=== PATIENT | female | born 1930 | race Caucasian/White ===

== ENCOUNTER 2016-07-27 11:59 | Emergency (ER) | payer OTHER ==
[~2016-07-27] VITALS: Ht 149.9 cm; Wt 75.0 kg
[~2016-07-27 11:59] MED LIST: AMLODIPINE BESYL5 MG PO; AMOX TR-K CLV1 EAC3 PO; BACTRIM,SEPT1 TABLET PO; CALCARB 600600 MG PO; CALCIUM 500 +1 EAC2 PO; CALCIUM CITRAT1 EA14 PO; CILOSTAZOL100 MG PO; COUMADIN1 MG PO; COUMADIN2 MG PO; CYANOCOBALAM1000 MCG PO; Coumadin Protocol PO; DIFLUCAN150 MG PO; DULCOLAX10 MG PR; Dextrose 10% in Wate IV; Dextrose 50% in Wate IV; FLEET ENEMA-AD118 ML PR; FLEXERIL5 MG PO; FOSAMAX70 MG PO; FUROSEMIDE20 MG PO; Flexeril PO; GABAPENTIN300 MG PO; GLUCAGEN1 MG IM/SC; GLUCOPHAGE500 MG PO; Glucophage PO; Heparin Lock 100 uni IV; KEFLEX500 MG PO; LASIX20 MG PO; LASIX40 MG PO; LIDODERM 5% P1 PATCH TD; LIDODERM 5% P1 PATCH TP; LISINOPRIL20 MG PO; LISINOPRIL5 MG PO; LOPID600 MG PO; LORTAB 7.5/51 TABLET PO; LOTENSIN40 MG PO; LOTREL 5/401 CAPSULE PO; Lasix PO; Lopid PO; Lopressor PO; MEPHYTON5 MG PO; METFORMIN HCL500 M1 PO; METFORMIN HCL500 MG PO; METOPROLOL SUCC50 MG PO; NEURONTIN300 MG PO; NOVOLOG PE100 UNITS/ SC; Neurontin PO; Neutra-Phos,Phos-Nak PO; OXYCODONE-ACET1 EACH PO; Oscal 500 w/Vitamin PO; PHILLIPS'400 MG/5 M PO; PLETAL100 MG PO; PRADAXA150 MG PO; PROMETHAZINE HC25 M1 PO; Pletal PO; SALINE FLUSH 5 M5 ML IV; SANTYL30 GM TP; Santyl TP; TOPROL XL6.25 MG PO; TRICOR145 MG PO; TUMS500 MG PO; TYLENOL REGULA325 MG PO; Toprol XL PO; ULTRAM50 MG PO; Ultram PO; Vicodin,Norco 5/325 PO; Vitamin B-12 SC; Xylocaine 5% TP; Zestril,Prinivil PO
[2016-07-27 13:24] LABS: HEMATOCRIT 42.7 % (36.0-46.0); MCH 25.7 PG (29.0-34.0); MCHC 30.7 G/DL (30.0-36.0); MCV 83.9 FL (83-99); MEAN PLAT.VOLUME 9.9 uM^3 (9.5-12.4); PLATELET COUNT 310 K/uL (156-360); RBC DIS.WIDTH-CV 19.4 % (11.8-14.6); RBC DIS.WIDTH-SD 58.4 % (39-53); RED BLOOD COUNT 5.09 M/uL (3.80-5.20); WHITE BLOOD COUNT 6.8 K/uL (4.1-10.2)
[2016-07-27] MEDS ORDERED: KEFLEX500 MG PO (14:11)
[2016-07-27 14:46] VITALS: BP 180/84
== END 2016-07-27 14:48 | disposition home or self-care (01) ==
LOC: EME 11:59
PROVIDERS: Nurse Practitioner Family
PROC: 2Y41X5Z Packing of Nasal Region using Packing Material (ICD-10-PCS; principal; 2016-07-27)
DX: R04.0 Epistaxis (principal); Z79.01 Long term (current) use of anticoagulants; E11.9 Type 2 diabetes mellitus without complications; Z79.84 Long term (current) use of oral hypoglycemic drugs; Z85.828 Personal history of other malignant neoplasm of skin; I73.9 Peripheral vascular disease, unspecified; I48.91 Unspecified atrial fibrillation; Z91.040 Latex allergy status; Z91.041 Radiographic dye allergy status; Z91.02 Food additives allergy status
CPT/HCPCS: 85027; 99281; 99285

== ENCOUNTER 2017-03-11 21:12 | Inpatient (IN) | payer OTHER ==
[~2017-03-11] VITALS: Ht 149.9 cm; Wt 91.1 kg
[2017-03-11 21:58] LABS: CHLORIDE 108 mEq/L (99-109); POTASSIUM 3.5 mEq/L (3.7-5.4); SODIUM 142 mEq/L (136-147)
[2017-03-11 22:00] LABS: EOSINOPHIL (%) 0.2 % (0-5); GLUCOSE 179 mg/dL (70-99); HEMATOCRIT 32.8 % (36.0-46.0); IMMATURE GRANULOCYTE (%) 0.8 % (0.0-0.7); INSTRUMENT ABS NEUTROPHIL CT 3.9 K/uL; LYMPHOCYTE COUNT 0.7 K/uL (1.0-2.8); MCH 22.1 PG (29.0-34.0); MCHC 29.9 G/DL (30.0-36.0); MEAN PLAT.VOLUME 9.3 uM^3 (9.5-12.4); MONOCYTE (%) 3.1 % (3-12); MONOCYTE COUNT 0.2 K/uL (0-0.8); NEUTROPHIL (%) 80.6 % (45-76); NEUTROPHIL COUNT 3.9 K/uL (1.8-6.4); PLATELET COUNT 259 K/uL (156-360); RBC DIS.WIDTH-CV 28.4 % (11.8-14.6); RBC DIS.WIDTH-SD 74.1 % (39-53); RED BLOOD COUNT 4.43 M/uL (3.80-5.20); WHITE BLOOD COUNT 4.8 K/uL (4.1-10.2)
[2017-03-11 22:01] LABS: ANION GAP 10 MEQ/L (2-14)
[2017-03-11 22:02] LABS: TOTAL BILIRUBIN 1.2 mg/dL (0.0-1.0)
[2017-03-11 22:03] LABS: ALKALINE PHOSPHATASE 37 IU/L (3-129)
[2017-03-11 22:04] LABS: GFR ESTIMATE (CALCULATED) > 59 mL/min/
[2017-03-11 22:05] LABS: UREA NITROGEN (BUN) 23 mg/dL (9-23)
[2017-03-11 22:07] LABS: LIPASE 44 U/L (1.0-51.0)
[2017-03-11 22:13] LABS: TROP-I INTERPRETATION NEGATIVE; TROPONIN-I 0.01 ng/mL (0.0-0.30)
[2017-03-11 23:22] LABS: ADD MIUA? YES; BILIRUBIN NEGATIVE; BLOOD NEGATIVE; COLOR YELLOW ((YELLOW)); GLUCOSE (STRIP) 150; KETONES 5; LEUKOCYTES LARGE; NITRITE NEGATIVE; PROTEIN (STRIP) 100; SPECIFIC GRAVITY 1.019 (1.000-1.030); UROBILINOGEN 0.2 MG/DL (0.2-1.0)
[2017-03-12 00:01] LABS: BACTERIA RARE /HPF; EPITHELIAL CELLS 1+ /HPF; MUCUS TRACE /LPF; UCUL ADDED? YES; WHITE BLOOD CELLS 20-30 /HPF (0-5)
[2017-03-12] MEDS ORDERED: FUROSEMIDE20 MG PO (01:05)
[2017-03-12] MEDS ORDERED: ENDOCET 5-3251 EACH PO (01:05)
[2017-03-12] MEDS ORDERED: TIZANIDINE HCL2 MG PO (01:14)
[2017-03-12] MEDS ORDERED: FUROSEMIDE40 MG PO (01:15)
[2017-03-12] MEDS ORDERED: XARELTO15 MG PO (01:16)
[2017-03-12] MEDS ORDERED: LISINOPRIL40 MG PO (01:17)
[2017-03-12] MEDS ORDERED: PROMETHAZINE12.5 M1 PO (01:17)
[2017-03-12] MEDS ORDERED: GABAPENTIN100 MG PO (01:19)
[2017-03-12] MEDS ORDERED: OMEPRAZOLE40 M1 PO (01:20)
[2017-03-12] MEDS ORDERED: FENOFIBRATE145 M1 PO (01:21)
[2017-03-12] MEDS ORDERED: GABAPENTIN400 MG PO (01:22)
[2017-03-12 04:14] LABS: CHLORIDE 109 mEq/L (99-109); POTASSIUM 3.5 mEq/L (3.7-5.4); SODIUM 144 mEq/L (136-147)
[2017-03-12 04:16] LABS: GLUCOSE 161 mg/dL (70-99)
[2017-03-12 04:17] LABS: ANION GAP 11 MEQ/L (2-14)
[2017-03-12 04:20] LABS: GFR ESTIMATE (CALCULATED) > 59 mL/min/
[2017-03-12 04:21] LABS: UREA NITROGEN (BUN) 23 mg/dL (9-23)
[2017-03-12 04:50] LABS: HEMATOCRIT 30.5 % (36.0-46.0); MCH 22.3 PG (29.0-34.0); MCHC 30.2 G/DL (30.0-36.0); MEAN PLAT.VOLUME 10.1 uM^3 (9.5-12.4); PLATELET COUNT 247 K/uL (156-360); RBC DIS.WIDTH-CV 28.1 % (11.8-14.6); RBC DIS.WIDTH-SD 72.6 % (39-53); RED BLOOD COUNT 4.12 M/uL (3.80-5.20); WHITE BLOOD COUNT 5.2 K/uL (4.1-10.2)
[2017-03-12 04:53] VITALS: BP 143/75
[2017-03-12 05:06] LABS: TROP-I INTERPRETATION NEGATIVE; TROPONIN-I 0.03 ng/mL (0.0-0.30)
[2017-03-12 05:56] LABS: POINT-OF-CARE METER ID UU14314084
[2017-03-12 08:10] VITALS: BP 171/86
[2017-03-12 11:35] LABS: POINT-OF-CARE METER ID UU14314084
[2017-03-12 11:37] LABS: TROP-I INTERPRETATION NEGATIVE; TROPONIN-I 0.04 ng/mL (0.0-0.30)
[2017-03-12 11:49] VITALS: BP 139/62
[2017-03-12 16:28] LABS: POINT-OF-CARE METER ID UU14208750
[2017-03-12 17:22] VITALS: BP 155/90
[2017-03-12 19:10] VITALS: BP 150/90
[2017-03-12 21:52] LABS: POINT-OF-CARE METER ID UU14208750
[2017-03-12 23:30] VITALS: BP 141/85
[2017-03-13] VITALS (7 sets, daily range): BP systolic 130–198; BP diastolic 69–100
[2017-03-13 06:27] LABS: POINT-OF-CARE METER ID UU14208750
[2017-03-13 06:38] LABS: HEMATOCRIT 33.2 % (36.0-46.0); MCH 22.7 PG (29.0-34.0); MCHC 29.8 G/DL (30.0-36.0); MEAN PLAT.VOLUME 9.8 uM^3 (9.5-12.4); NRBC (%) 0.3 /100 WBC (0-0); PLATELET COUNT 253 K/uL (156-360); RBC DIS.WIDTH-CV 28.3 % (11.8-14.6); RBC DIS.WIDTH-SD 75.2 % (39-53); RED BLOOD COUNT 4.37 M/uL (3.80-5.20); WHITE BLOOD COUNT 7.3 K/uL (4.1-10.2)
[2017-03-13 07:08] LABS: ALKALINE PHOSPHATASE 30 IU/L (3-129); ANION GAP 12 MEQ/L (2-14); CHLORIDE 104 MEQ/L (99-109); GFR ESTIMATE (CALCULATED) > 59 mL/min/; GLUCOSE 144 mg/dL (70-99); SAMPLE HEMOLYSIS CHECK 0; SAMPLE ICTERIC CHECK 0; SAMPLE LIPEMIA CHECK 0; SODIUM 147 MEQ/L (136-147); TOTAL BILIRUBIN 1.2 MG/DL (0.0-1.0); UREA NITROGEN (BUN) 17 mg/dL (9-23)
[2017-03-13 11:34] LABS: POINT-OF-CARE METER ID UU14208750
[2017-03-13 16:01] LABS: POINT-OF-CARE METER ID UU14162508
[2017-03-13 21:29] LABS: POINT-OF-CARE METER ID UU14208750
[2017-03-14 03:25] VITALS: BP 131/79
[2017-03-14 06:24] LABS: POINT-OF-CARE METER ID UU14208750
[2017-03-14 07:15] LABS: HEMATOCRIT 32.3 % (36.0-46.0); MCH 22.1 PG (29.0-34.0); MCHC 28.8 G/DL (30.0-36.0); MCV 76.7 FL (83-99); MEAN PLAT.VOLUME 9.8 uM^3 (9.5-12.4); NRBC (%) 0.3 /100 WBC (0-0); PLATELET COUNT 228 K/uL (156-360); RBC DIS.WIDTH-CV 27.9 % (11.8-14.6); RBC DIS.WIDTH-SD 74.7 % (39-53); RED BLOOD COUNT 4.21 M/uL (3.80-5.20); WHITE BLOOD COUNT 6.5 K/uL (4.1-10.2)
[2017-03-14 07:37] LABS: ANION GAP 7 MEQ/L (2-14); CHLORIDE 98 MEQ/L (99-109); GFR ESTIMATE (CALCULATED) > 59 mL/min/; GLUCOSE 118 mg/dL (70-99); IRON 24 MCG/DL (35-150); POTASSIUM 2.8 MEQ/L (3.7-5.4); SAMPLE HEMOLYSIS CHECK 0; SAMPLE ICTERIC CHECK 0; SAMPLE LIPEMIA CHECK 0; SODIUM 143 MEQ/L (136-147); UREA NITROGEN (BUN) 12 mg/dL (9-23)
[2017-03-14 08:14] LABS: FERRITIN 13 NG/ML (10-291)
[2017-03-14 08:18] VITALS: BP 136/61
[2017-03-14 11:01] VITALS: BP 144/67
[2017-03-14 12:34] LABS: POINT-OF-CARE METER ID UU14162508
[2017-03-14 16:30] VITALS: BP 138/64
[2017-03-14 17:14] LABS: POINT-OF-CARE METER ID UU14162508
[2017-03-14 19:39] VITALS: BP 115/58
[2017-03-14 21:26] LABS: POINT-OF-CARE METER ID UU14208750
[2017-03-14 23:27] VITALS: BP 117/60
[2017-03-15 03:46] VITALS: BP 121/60
[2017-03-15 06:20] LABS: POINT-OF-CARE METER ID UU14208750
[2017-03-15 06:34] LABS: HEMATOCRIT 32.2 % (36.0-46.0); MCH 22.3 PG (29.0-34.0); MCHC 28.9 G/DL (30.0-36.0); MCV 77.2 FL (83-99); MEAN PLAT.VOLUME 10.1 uM^3 (9.5-12.4); PLATELET COUNT 256 K/uL (156-360); RBC DIS.WIDTH-CV 27.9 % (11.8-14.6); RBC DIS.WIDTH-SD 76.2 % (39-53); RED BLOOD COUNT 4.17 M/uL (3.80-5.20); WHITE BLOOD COUNT 6.4 K/uL (4.1-10.2)
[2017-03-15 07:28] LABS: ANION GAP ND MEQ/L (2-14); CARBON DIOXIDE (BICARBONATE) > 40.0 MEQ/L (20-31); CHLORIDE 97 MEQ/L (99-109); GFR ESTIMATE (CALCULATED) > 59 mL/min/; GLUCOSE 118 mg/dL (70-99); POTASSIUM 3.1 MEQ/L (3.7-5.4); SAMPLE HEMOLYSIS CHECK 0; SAMPLE ICTERIC CHECK 0; SAMPLE LIPEMIA CHECK 0; SODIUM 144 MEQ/L (136-147); UREA NITROGEN (BUN) 17 mg/dL (9-23)
[2017-03-15 07:33] VITALS: BP 192/80
[2017-03-15 11:27] LABS: POINT-OF-CARE METER ID UU14162508
[2017-03-15 12:29] VITALS: BP 134/62
[2017-03-15 15:17] VITALS: BP 119/59
[2017-03-15 16:53] LABS: POINT-OF-CARE METER ID UU14208750
[2017-03-15 19:28] VITALS: BP 123/78
[2017-03-15 21:46] LABS: POINT-OF-CARE METER ID UU14314084
[2017-03-15 23:35] VITALS: BP 129/70
[2017-03-16 03:35] VITALS: BP 120/74
[2017-03-16 06:46] LABS: POINT-OF-CARE METER ID UU14314084
[2017-03-16 07:00] VITALS: BP 160/80
[2017-03-16 07:21] LABS: ANION GAP 5 MEQ/L (2-14); CHLORIDE 98 MEQ/L (99-109); GFR ESTIMATE (CALCULATED) > 59 mL/min/; GLUCOSE 99 mg/dL (70-99); MAGNESIUM 1.4 mg/dl (1.3-2.7); SAMPLE HEMOLYSIS CHECK 0; SAMPLE ICTERIC CHECK 0; SAMPLE LIPEMIA CHECK 0; SODIUM 143 MEQ/L (136-147); UREA NITROGEN (BUN) 20 mg/dL (9-23)
[2017-03-16 07:26] LABS: POTASSIUM 4.1 MEQ/L (3.7-5.4)
[2017-03-16 11:33] VITALS: BP 107/56
[2017-03-16 11:57] LABS: POINT-OF-CARE METER ID UU14208750
[2017-03-16 15:00] VITALS: BP 127/56
[2017-03-16 16:42] LABS: POINT-OF-CARE METER ID UU14314084
[2017-03-16 20:05] VITALS: BP 155/74
[2017-03-16 22:41] LABS: POINT-OF-CARE METER ID UU14314084
[2017-03-16 23:28] VITALS: BP 153/79
[2017-03-17 02:48] VITALS: BP 153/71
[2017-03-17 06:09] LABS: POINT-OF-CARE METER ID UU14208750
[2017-03-17 06:55] LABS: ANION GAP 6 MEQ/L (2-14); CHLORIDE 98 MEQ/L (99-109); GFR ESTIMATE (CALCULATED) > 59 mL/min/; GLUCOSE 133 mg/dL (70-99); POTASSIUM 4.5 MEQ/L (3.7-5.4); SAMPLE HEMOLYSIS CHECK 0; SAMPLE ICTERIC CHECK 0; SAMPLE LIPEMIA CHECK 0; SODIUM 143 MEQ/L (136-147); UREA NITROGEN (BUN) 21 mg/dL (9-23)
[2017-03-17 08:09] VITALS: BP 139/22; BP 139/63
[2017-03-17] MEDS ORDERED: FERROUS SULFAT325 MG PO (10:58)
[2017-03-17] MEDS ORDERED: ELIQUIS5 MG PO ×2 (10:59→11:00)
[2017-03-17] MEDS ORDERED: ENDOCET 5-3251 EACH PO (11:01)
[2017-03-17] MEDS ORDERED: K-DUR10 MEQ PO (11:02)
[2017-03-17] MEDS ORDERED: DOCUSATE SODIU100 MG PO (11:03)
[2017-03-17 12:33] LABS: POINT-OF-CARE METER ID UU14208750
== END 2017-03-17 15:52 | DRG 299 ==
LOC: EME → EDBD 21:12 → EDOF 03-12 02:08 → 2EAST 03-12 02:08 → ENRESERV 03-12 02:11 → 2EASTP 03-12 04:38 → 2EAST 03-12 14:21 → ENRESERV 03-12 14:21 → 2EAST 03-17 15:52
PROVIDERS: Emergency Medicine; Hospitalist; Internal Medicine; Physician Assistant Medical
DX: I82.442 Acute embolism and thrombosis of left tibial vein (principal); J96.01 Acute respiratory failure with hypoxia; D50.0 Iron deficiency anemia secondary to blood loss (chronic); I50.33 Acute on chronic diastolic (congestive) heart failure; I11.0 Hypertensive heart disease with heart failure; Z66 Do not resuscitate; E78.5 Hyperlipidemia, unspecified; R00.0 Tachycardia, unspecified; N30.00 Acute cystitis without hematuria; E66.9 Obesity, unspecified; I48.2 Chronic atrial fibrillation; R18.8 Other ascites; E87.6 Hypokalemia; L97.329 Non-pressure chronic ulcer of left ankle with unspecified severity; K57.30 Diverticulosis of large intestine without perforation or abscess without bleeding; S81.802A Unspecified open wound, left lower leg, initial encounter; E87.3 Alkalosis; E87.70 Fluid overload, unspecified; K59.00 Constipation, unspecified; I27.20 Pulmonary hypertension, unspecified; I08.2 Rheumatic disorders of both aortic and tricuspid valves; E11.51 Type 2 diabetes mellitus with diabetic peripheral angiopathy without gangrene; E11.622 Type 2 diabetes mellitus with other skin ulcer; M19.90 Unspecified osteoarthritis, unspecified site; I07.1 Rheumatic tricuspid insufficiency; Z74.01 Bed confinement status; Z68.41 Body mass index [BMI] 40.0-44.9, adult; Z79.01 Long term (current) use of anticoagulants; Z85.828 Personal history of other malignant neoplasm of skin; Z79.4 Long term (current) use of insulin; Z90.710 Acquired absence of both cervix and uterus; Z79.899 Other long term (current) drug therapy; Z90.721 Acquired absence of ovaries, unilateral
CPT/HCPCS: 70450; 71010; 71250; 74176; 78582; 80048; 80053; 81003; 82272; 82728; 82948; 83540; 83605; 83690; 83735; 83880; 84466; 84484; 85025; 85027; 87040; 87086; 93005; 93306; 93970; 94799; 99281; 99285; A9540; A9567; C9113; J0696; J1650; J1815; J1940; J2405; J2765; J3010; J3480; J7040